=== PATIENT | male | born 1960 | race Caucasian/White ===

== ENCOUNTER 2019-04-27 15:05 | Outpatient (CLI) | payer MEDICARE, MEDICAID, SELFPAY ==
[2019-04-27 15:50] LABS: Hematocrit 42.6 % (42.0-52.0); Hemoglobin 14.4 g/dL (14.0-18.0); Mean Corpuscular HGB Conc 33.8 g/dl (32-36); Mean Corpuscular Hemoglobin 31.2 pg (26-34); Mean Corpuscular Volume 92.4 fl (80-100); Mean Platelet Volume 9.5 fl (7.4-10.4); Platelet Count Result 158 k/mm3 (150-375); Red Blood Count 4.61 M/mm3 (4.6-6.20); Red Cell Distribution Width 14.2 % (11.5-14.5); White Blood Count 7.4 K/mm3 (4.5-10.0)
[2019-04-27 15:57] LABS: Albumin Level 3.7 g/dL (3.5-5.1); Blood Urea Nitrogen 30 mg/dL (9-20); Calcium 8.5 mg/dL (8.4-10.2); Carbon Dioxide 18 mmol/L (22-30); Chloride 107 mmol/L (98-107); Estimated Glomerular Filt Rate 25; Glucose 125 mg/dL (75-110); Phosphorus 3.3 mg/dL (2.5-4.5); Potassium 4.3 mmol/L (3.4-5.0); Sodium 135 mmol/L (137-145)
[2019-04-27 15:58] LABS: Cholesterol 181 mg/dL (0-200); HDL Direct 37 mg/dL; Triglycerides 124 mg/dL (<150)
[2019-04-27 16:09] LABS: LDL Cholesterol Direct 107 mg/dL
[2019-04-27 16:28] LABS: Prostate Specific Antigen 0.1 ng/mL (< OR = 4.0)
[2019-04-27 16:31] LABS: Free T4 Free Thyroxine 1.14 ng/mL (0.78-2.19)
== END 2019-04-27 15:06 | disposition home or self-care (01) ==
LOC: ANHLAB 15:11
PROVIDERS: Family Provider Physician Assistant; PCP Physician Assistant; Visit Provider Internal Medicine Nephrology
DX: E08.21 Diabetes mellitus due to underlying condition with diabetic nephropathy (principal); E03.9 Hypothyroidism, unspecified; Z12.5 Encounter for screening for malignant neoplasm of prostate; N18.4 Chronic kidney disease, stage 4 (severe)
CPT/HCPCS: 36415; 80061; 80069; 83036; 84153; 84439; 84443; 85027; G0103

== ENCOUNTER 2019-12-26 12:02 | Outpatient (CLI) | payer MEDICARE, MEDICAID, SELFPAY ==
[2019-12-26 12:53] LABS: Albumin Level 3.4 g/dL (3.5-5.1); Anion Gap 11 mmol/L (8-16); Blood Urea Nitrogen 36 mg/dL (9-20); Calcium 8.5 mg/dL (8.4-10.2); Carbon Dioxide 18 mmol/L (22-30); Chloride 108 mmol/L (98-107); Estimated Glomerular Filt Rate 24; Glucose 118 mg/dL (75-110); Phosphorus 3.3 mg/dL (2.5-4.5); Potassium 4.5 mmol/L (3.4-5.0); Sodium 137 mmol/L (137-145)
[2019-12-26 13:05] LABS: Parathyroid Intact 368.3 pg/mL (7.5-53.5)
== END 2019-12-26 12:03 | disposition home or self-care (01) ==
PROVIDERS: PCP Internal Medicine; Referring Provider Internal Medicine; Visit Provider Internal Medicine Nephrology
DX: N18.4 Chronic kidney disease, stage 4 (severe) (principal)
CPT/HCPCS: 36415; 80069; 82306; 83970

== ENCOUNTER 2020-01-12 08:35 | Outpatient (NON) | payer MEDICARE, MEDICAID, SELFPAY ==
[2020-01-12 10:53] LABS: Total Protein Urine Random 46 mg/dL
== END 2020-01-12 08:36 ==
LOC: ANHLAB 08:36
PROVIDERS: PCP Internal Medicine; Visit Provider Internal Medicine Nephrology
DX: N18.4 Chronic kidney disease, stage 4 (severe) (principal)
CPT/HCPCS: 82570; 84156